=== PATIENT | female | born 1985 | race African-American/Black ===

== ENCOUNTER 2017-02-18 05:34 | Inpatient (IN) | payer MEDICAID, OTHER ==
--- NOTE | 2017-02-17 23:20 | PCM.LDHP ---
L&D History of Present Illness - General Date of Service: 02/17/17 Admit Problem/Dx: Admission Diagnosis/Problem Admission Diagnosis/Problem 02/17/17 23:06 39-1/7 week intrauterine , history of previous section with desire for repeat section Source of Information: Patient History Limitations: Reports: No Limitations - History of Present Illness Introduction:: Char is a 31-year-old 3 para 1011 -[place] female who is admitted for a scheduled repeat section on 02/18/2017 at 39-1/7 weeks gestational age with an RODGER of 02/24/2017. The procedure, risks, benefits, alternatives of care and follow-up were discussed in detail patient. She appears to understand. She wishes to proceed and signed a consent. 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 Her last menstrual period was 05/30/2016. Her RODGER is set at 1214 2017 x 12-5/7 week intrauterine done on 2016. This is supported by 2 other prior ultrasounds done on 10/20/2016 and 2016. Patient had menarche at age 10, cycles every 28 days. Last menstrual period was 05/30/2016 onset, was normal in amount and duration. Positive hCG is on 07/19/2016. Previous obstetric history includes the followin. Spontaneous miscarriage at 6 weeks gestational age in 2010. 2. Male infant born 08/09/2011 at 39 weeks gestational age after 12 hours labor. 8 lbs. 6 oz. born via primary section for failure to progress. Child's name is [facility]. course: Patient was somewhat noncompliant with care. She has history of asthma but was stable throughout the course. Drug screen was negative on . [place] depression screening score was 1 out of 30 on 2016. Father the baby by history has sickle cell trait. She is group B strep negative. Large for dates. Morbidly obese. Rubella nonimmuneneeds an MMR in labor and delivery after delivery. The patient was first seen for care on 08/17/2016. This was at approximately 12 weeks and 5 days. Weight at that time was 281. On last dilation was 322 for a 41 pound weight gain. Vital signs remained stable throughout the course. Fundal height growth has been excessive and now is at 47. Very difficult to assess Past medical history: 1. Spontaneous miscarriage 2010 2. Abnormal Paps or December 2015 Past surgical history: 1. 2011 Family history: Father baby has sickle cell trait. Mother the baby has some mental retardation father's side. Mom however is alive and well. Dad is secondary to heart disease. 4 brothers are alive and well. Maternal grandmother is alive listens history of strokes. Paternal grandfathers health is unknown. Paternal grandmother is from a lightning strike. Paternal grandfather suffers from heart disease. No sickle cell in patient noted. No clotting, bleeding, anesthesia or problems noted in the family. Allergies: shellfish which causes itching and swelling and penicillin which causes vomiting No allergies to penicillins Medications: 1. Tonsils plus calcium one daily 2. Vitamins 1 daily Social history: Patient is single. Significant other's Goran Robins. She has had some college. He is not employed at the present time. He denies any significant amounts of alcohol, drugs or tobacco. They live in [facility]. Review of systems: Skin: Negative Cardiovascular: No chest pain or exercise tolerance Respiratory: No infectious problems or shortness of breath Breasts: Changes Associated GI: Negative : Size increased secondary to . Extremities: 1+ pitting edema Neurological: Negative Physical exam: Last evaluation in clinic on 02/17/2017 her heart rate is 1: 30. Blood pressure is 132/90. Weight was 322 [id number]. Patient's pre body mass index is 48.8 Skin is warm and dry without lesions. HEENT, neck and back within normal limits Lungs are clear with good breath sounds in all lung alexander. Cardiovascular exam shows regular and rhythm without murmurs. Breasts exam is deferred at this time having undergone first visit and found to be normal. Abdomen is protuberant with with a fundal height of 47 cm. I believe there is a vertex presentation. Gentle exam assertion be closed thick and the last dilation 30/09/2016. Extremities show 1+ pitting edema in bilateral lower extremities. Logically patient appears doing well. Assessment: 39-1/7 week intrauterine with history of previous section desire for repeat and prepped 2. Risk factors for the surgery include massive obesity, history of previous surgery 3. Blood is A+. 4. Patient plans to bottle feed Plan: 1. Repeat lower segment transverse section through Pfannenstiel skin incision under spinal block scheduled for 02/18/2017 at 0800 hrs. 2. DVT prophylaxis SCDs 3. Infection prophylaxis Ancef 2 g IV preop. Patient reports no problems with cephalosporins 4. Routine preoperative labs including CBC, urinalysis, type and screen and a comprehensive metabolic profile. - Related Data Allergies/Adverse Reactions: Allergies Allergy/AdvReac Type Severity Reaction Status Date / Time Penicillins Allergy Vomiting Verified 05/11/15 12:53 Home Medications: Home Meds oxyCODONE HCl/Acetaminophen [oxyCODONE-Acetaminophen 5-325] 1 tab PO Q6H PRN # 20 tablet 05/11/15 [Rx] Past Medical History Respiratory History: Reports: Asthma Other Respiratory History: mucous plug in lungs Psychiatric History: Reports: Depression - Infectious Disease History Infectious Disease History: Reports: Chicken Pox, Measles, Mumps Social & Family History - Tobacco Use Smoking Status *Q: Never Smoker Years of Tobacco use: 15 Packs/Tins Daily: 0 - Alcohol Use Days Per Week of Alcohol Use: 2 Number of Drinks Per Day: 5 Total Drinks Per Week: 10 - Recreational Drug Use Recreational Drug Use: No Drug Use in Last 12 Months: Yes Recreational Drug Type: Reports: Marijuana/Hashish Recreational Drug Use Frequency: Daily H&P Review of Systems - Review of Systems: Review Of Systems: See Below L&D Exam - Exam Exam: See Below - Vital Signs Weight: 124.738 kg Problem List Initiated/Reviewed/Updated: Yes
[~2017-02-18 05:34] MED LIST: Citric Acid/Sodium Citrate Solution 30 ML Cup PO ONE; Metoclopramide 10 MG/2 ML SDV IVPUSH ONE; Sodium Chloride 0.9% 10 ML Syringe FLUSH PRN; ceFAZolin 1 GM in Premix Bag 1 BAG IV ONE; ceFAZolin 2 GM in Premix Bag 1 BAG IV ONE
[2017-02-18] MEDS ORDERED: Morphine PF 1 MG/ML Amp ONE (06:51)
[2017-02-18] MEDS ORDERED: Bupivacaine 0.5% 30 ML SDV ONE (06:55)
[2017-02-18] MEDS: Lactated Ringers 1,000 ML IV SCH ×2 (07:12→07:13)
[2017-02-18] MEDS ORDERED: ceFAZolin 1 GM Vial ONE ×2 (07:12→07:50)
[2017-02-18] MEDS ORDERED: Phenylephrine 1% 10 MG/ML SDV ONE (07:12)
--- NOTE | 2017-02-18 07:24 | PCM.PREANE ---
Preanesthetic Assessment - Anesthesia/Transfusion/Family Hx Anesthesia History: Prior Anesthesia Without Reaction Family History of Anesthesia Reaction: No Transfusion History: No Prior Transfusion(s) - Review of Systems General: No Symptoms Pulmonary: No Symptoms Cardiovascular: No Symptoms Gastrointestinal: No Symptoms Neurological: Numbness (fingers) Other: Reports: None - Physical Assessment NPO Status Date: 02/17/17 NPO Status Time: 00:00 Pulse: 90 O2 Sat by Pulse Oximetry: 99 Respiratory Rate: 18 Blood Pressure: 150/83 Temperature: 36.9 C Vital Signs: Last Vital Signs Temp 36.9 C 02/18/17 06:31 Pulse 90 02/18/17 06:31 Resp 18 02/18/17 06:31 BP 150/83 H 02/18/17 06:31 Pulse Ox 99 02/18/17 06:31 Height: 1.64 m Weight: 146.057 kg ASA Class: 2 Mental Status: Alert & Oriented x3 Airway Class: Mallampati = 1 Dentition: Reports: Normal Dentition Thyro-Mental Finger Breadths: 2 Mouth Opening Finger Breadths: 3 ROM/Head Extension: Full Lungs: Clear to Auscultation, Normal Respiratory Effort Cardiovascular: Regular Rate, Regular Rhythm - Lab Values: Laboratory Last Values WBC 7.15 K/mm3 (3.98-10.04) 02/18/17 05:59 RBC 5.02 M/mm3 (3.98-5.22) 02/18/17 05:59 Hgb 12.9 gm/L (11.2-15.7) 02/18/17 05:59 Hct 39.6 % (34.1-44.9) 02/18/17 05:59 MCV 78.9 fl (79.4-94.8) L 02/18/17 05:59 MCH 25.7 pg (25.6-32.2) 02/18/17 05:59 MCHC 32.6 g/dl (32.2-35.5) 02/18/17 05:59 RDW Std Deviation 43.1 fL (36.4-46.3) 02/18/17 05:59 Plt Count 151 K/mm3 (182-369) L 02/18/17 05:59 MPV 12.9 fl (9.4-12.3) H 02/18/17 05:59 Neut % (Auto) 50.0 % (34.0-71.1) 02/18/17 05:59 Lymph % (Auto) 38.5 % (19.3-51.7) 02/18/17 05:59 [place] % (Auto) 8.7 % (4.7-12.5) 02/18/17 05:59 Eos % (Auto) 2.7 (0.7-5.8) 02/18/17 05:59 Baso % (Auto) 0.0 % (0.1-1.2) L 02/18/17 05:59 Neut # (Auto) 3.58 K/mm3 (1.56-6.13) 02/18/17 05:59 Lymph # (Auto) 2.75 K/mm3 (1.18-3.74) 02/18/17 05:59 [place] # (Auto) 0.62 K/mm3 (0.24-0.36) H 02/18/17 05:59 Eos # (Auto) 0.19 K/mm3 (0.04-0.36) 02/18/17 05:59 Baso # (Auto) 0.00 K/mm3 (0.01-0.08) L 02/18/17 05:59 Blood Type A POSITIVE 02/18/17 05:59 - Allergies Allergies/Adverse Reactions: Allergies Allergy/AdvReac Type Severity Reaction Status Date / Time Penicillins Allergy Vomiting Verified 05/11/15 12:53 - Anesthesia Plan Pre-Op Medication Ordered: Antacids - Acknowledgements Anesthesia Type Planned: Spinal Pt an Appropriate Candidate for the Planned Anesthesia: Yes Alternatives and Risks of Anesthesia Discussed w Pt/Guardian: Yes Pt/Guardian Understands and Agrees with Anesthesia Plan: Yes PreAnesthesia Questionnaire Respiratory History: Reports: Asthma Other Respiratory History: mucous plug in lungs 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: Reports: GERD 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: Psychiatric History: Reports: Depression - Infectious Disease History Infectious Disease History: Reports: Chicken Pox, Measles, Mumps - Past Surgical History Respiratory Surgical History: Reports: Other (See Below) Other Respiratory Surgeries/Procedures: Bronchoscopy in 2003 Female Surgical History: Reports: Section - History Comment History Comment: Obese - SUBSTANCE USE Smoking Status *Q: Never Smoker Days Per Week of Alcohol Use: 2 Number of Drinks Per Day: 5 Total Drinks Per Week: 10 Recreational Drug Use History: No Recreational Drug Type: Reports: Marijuana/Hashish - HOME MEDS Home Medications: Home Meds oxyCODONE HCl/Acetaminophen [oxyCODONE-Acetaminophen 5-325] 1 tab PO Q6H PRN # 20 tablet 05/11/15 [Rx] - CURRENT (IN HOUSE) MEDS Current Meds: Current Medications Lactated Ringer's (Ringers, Lactated) 1,000 mls @ 125 mls/hr IV ASDIRECTED JOSE LUIS Last Admin: 02/18/17 07:13 Dose: 125 mls/hr Oxytocin 20 unit/ Lactated (Ringer's) 1,002 mls @ 500 mls/hr IV TITRATE JOSE LUIS Sodium Chloride (Saline Flush) 10 ml FLUSH ASDIRECTED PRN PRN Reason: Keep Vein Open Discontinued Medications Bupivacaine HCl (Marcaine 0.5%) Confirm Administered Dose 30 ml .ROUTE .STK-MED ONE Stop: 02/18/17 06:56 Cefazolin Sodium (Ancef) Confirm Administered Dose 2 gm .ROUTE .STK-MED ONE Stop: 02/18/17 07:13 Citric Acid/Sodium Citrate (Bicitra Solution) 30 ml PO ONETIME ONE Stop: 02/18/17 04:46 Last Admin: 02/18/17 06:54 Dose: 30 ml Cefazolin Sodium/Dextrose 1 gm (/ Premix) 50 mls @ 100 mls/hr IV ONETIME ONE Stop: 02/18/17 05:14 Cefazolin Sodium/Dextrose 2 gm (/ Premix) 50 mls @ 100 mls/hr IV ONETIME ONE Stop: 02/18/17 05:14 Metoclopramide HCl (Reglan) 10 mg IVPUSH ONETIME ONE Stop: 02/18/17 04:46 Last Admin: 02/18/17 06:54 Dose: 10 mg Morphine Sulfate (Duramorph Pf) Confirm Administered Dose 1 mg .ROUTE .STK-MED ONE Stop: 02/18/17 06:52 Phenylephrine HCl (Fady-Synephrine) Confirm Administered Dose 10 mg .ROUTE .STK- MED ONE Stop: 02/18/17 07:13
[2017-02-18] MEDS ORDERED: Oxytocin 10 Units/1 ML SDV ONE (08:37)
[2017-02-18] MEDS ORDERED: Lactated Ringers 1,000 ML ONE ×2 (08:45→08:46)
[2017-02-18] MEDS ORDERED: Ketorolac 30 MG/ML SDV ONE (08:57)
[2017-02-18] MEDS ORDERED: diphenhydrAMINE 50 MG/ML SDV IVPUSH PRN ×2 (09:16→10:58)
--- NOTE | 2017-02-18 09:17 | PCM.POSTAN ---
POST ANESTHESIA ASSESSMENT - MENTAL STATUS Mental Status: Alert, Oriented - VITAL SIGNS Pulse Rate: 92 SaO2: 99 Resp Rate: 15 Blood Pressure: 125/53 Temperature: 36.9 C - RESPIRATORY Respiratory Status: Respiratory Rate WNL, Airway Patent, O2 Saturation Stable, Supplemental Oxygen - CARDIOVASCULAR CV Status: Pulse Rate WNL, Blood Pressure Stable - GASTROINTESTINAL GI Status: No Symptoms - PAIN Pain Score: 0 - POST OP HYDRATION Hydration Status: Adequate & Stable - OBSERVATIONS Free Text/Narrative:: no anesthetic complications noted
--- NOTE | 2017-02-18 09:21 | PCM.OPNOTE ---
- General Post-Op/Procedure Note Date of Surgery/Procedure: 02/18/17 Operative Procedure(s): Repeat lower uterine segment transverse section through Pfannenstiel skin incision Findings: Minimal scarring. Baby in vertex presentation. Clear amniotic fluid. Baby was a male infant and weighed 10 lbs. 0 oz., Apgars of 8 and 9 and was born at 0822 hrs on 02/18/2017. Pre Op Diagnosis: 39-1/7 week intrauterine , history of previous C- section with desire for repeat section Post-Op Diagnosis: Same Anesthesia Technique: Spinal Other Anesthesia Type: Marcaine 0.5%20 mL local Primary Surgeon: Mikal Land Secondary Surgeon: Noe Perez Anesthesia Provider: Destin Swanson Overlock Elastic Attacher: Kiana Galarza Reason Overlock Elastic Attacher Was Necessary: Retraction, patient's safety, quality of care Role of Overlock Elastic Attacher: retraction Fluid Replacement, Intraop: 3,200 Output, Urine Amount: 100 EBL in mLs: 700 Drain/Tube Comments:: Indwelling bladder catheter Complications: None Condition: Good Free Text/Narrative:: Surgery duration 42 minutes Procedure: Patient was transferred to the room and placed in a sitting position. Spinal anesthesia was administered. After confirmation of adequate anesthesia patient was placed in a supine position with a wedge under her right side to facilitate left lateral positioning. The patient was prepped and draped in usual fashion after Vazquez catheter was already placed . The anesthetic was checked and found to be adequate. 20 mL of Marcaine 0.5% was injected locally in the Pfannenstiel incision site. The Pfannenstiel skin incision was then made carried down to skin subcutaneous and fascial layers. The fascia was then undermined superiorly and inferiorly to allow for adequate operating room the recti muscles midline and preperitoneal fat was bluntly dissected. Peritoneal cavity was entered longitudinally. The vesicouterine peritoneum was then incised transversely and bladder flap was developed. Myometrium was incised transversely to the level of the amniotic sac. This incision was extended bilaterally in a blunt fashion. The amniotic sac was then ruptured resulting clear amniotic fluid. A hand is placed in the low uterine segment and the baby's head was brought forth through the incision. The baby was completely delivered using fundal pressure in a routine fashion. The nose and mouth were bulb suctioned. Baby's cord was clamped x2 cut and baby was handed off to attending swimming pool installer Dr Guzman. Placenta was expressed after cord blood was obtained. Uterus was then exteriorized to allow for easier closure. The cervix was assessed and found to be dilated adequately to allow egress of blood. The uterus was closed in 2 layers. The first layer a running locked suture of 0 Monocryl, the second layer a running locked vertical mattress suture of 0 Monocryl. [id number] suture was placed at the left incision to control 1 bleeder. Hemostasis confirmed at this time. Sponge instrument needle counts are correct. The uterus was returned to the abdominal cavity and lateral gutters were cleared of blood. Once again sponge needle counts are correct. The anterior abdominal wall was closed with a #1 PDS suture from angle to angle. The subcutaneous area was found to be free of any bleeders. interrupted sutures of 3-0 Monocryl were used to reapproximate the subcutaneous layer.Skin was closed with a running subcuticular stitch of 3-0 Monocryl in a vertical mattress suture fashion using a Roberto Carlos needle. Prineo mesh /glue was then applied to further approximate the incision. It should be noted that patient received 2 g of Ancef preoperatively for infection prophylaxis and had Pitocin infused after delivery of the placenta to facilitate uterine contraction. She also had sequential compression stockings in place for DVT prophylaxis. Patient was discharged from the operating room in satisfactory condition.
[2017-02-18] MEDS ORDERED: Dextrose 5%-Lactated Ringers 1,000 ML IV SCH (10:58)
[2017-02-18] MEDS ORDERED: Naloxone 0.4 MG/ML SDV IVPUSH PRN (10:58)
[2017-02-18] MEDS ORDERED: ePHEDrine 50 MG/ML SDV IVPUSH PRN (10:58)
[2017-02-18] MEDS ORDERED: Docusate Sodium 100 MG Cap PO PRN (10:58)
[2017-02-18] MEDS ORDERED: Lanolin 100% Cream 7 GM Tube TOP PRN (10:58)
[2017-02-18] MEDS: Ibuprofen 800 MG Tab PO SCH ×2 (15:01→23:26)
--- NOTE | 2017-02-18 15:12 | PCM48HPAN ---
Post Anesthesia Note - EVALUATION WITHIN 48HRS OF ANESTHETIC Vital Signs in Normal Range: Yes Patient Participated in Evaluation: Yes Respiratory Function Stable: Yes Airway Patent: Yes Cardiovascular Function Stable: Yes Hydration Status Stable: Yes Pain Control Satisfactory: Yes Nausea and Vomiting Control Satisfactory: Yes Mental Status Recovered: Yes
[2017-02-18] MEDS ORDERED: Ondansetron 4 MG/2 ML SDV IVPUSH PRN (15:59)
[2017-02-18] MEDS: Simethicone 80 MG Tab.Chew PO SCH ×3 (16:37→23:26)
[2017-02-18] MEDS ORDERED: Sodium Chloride 0.9% 1,000 ML IV ONE (16:42)
[2017-02-19] MEDS: Acetaminophen/oxyCODONE 325-5 MG Tab PO PRN ×4 (04:06→22:05)
[2017-02-19] MEDS: Prenatal Multivitamin with Calcium/Folic Acid/Iron Tab PO SCH (09:26)
[2017-02-19] MEDS: Simethicone 80 MG Tab.Chew PO SCH ×3 (09:27→22:00)
[2017-02-19] MEDS: Ibuprofen 800 MG Tab PO SCH ×4 (09:27→23:55)
[2017-02-19] MEDS ORDERED: Lactated Ringers 1,000 ML IV SCH (10:00)
[2017-02-20] MEDS: Acetaminophen/oxyCODONE 325-5 MG Tab PO PRN ×4 (03:41→17:26)
--- NOTE | 2017-02-20 08:20 | PCM.PNPP ---
- General Info Date of Service: 02/19/17 Subjective Update: 31 year old female POD1 s/p RCS, chronic hypertnesion and probable type 2 or gestational diabetes. Some left sided neck pain and positional headache over night. Patient distressed by this with worry. Functional Status: Reports: Pain Controlled - Review of Systems General: Reports: No Symptoms HEENT: Reports: Headaches Pulmonary: Reports: No Symptoms Cardiovascular: Reports: No Symptoms Gastrointestinal: Reports: No Symptoms Genitourinary: Reports: No Symptoms Musculoskeletal: Reports: Neck Pain Skin: Reports: No Symptoms Neurological: Reports: No Symptoms Psychiatric: Reports: No Symptoms - General Info Date of Service: 02/20/17 - Patient Data Vital Signs - Most Recent: Last Vital Signs Temp 36.7 C 02/20/17 03:45 Pulse 77 02/20/17 03:45 Resp 16 02/20/17 03:45 BP 141/74 H 02/20/17 03:45 Pulse Ox 99 02/20/17 03:45 Weight - Most Recent: 146.057 kg I&O - Last 24 Hours: Intake & Output 02/19/17 02/20/17 02/20/17 22:59 06:59 14:59 Intake Total 640 Balance 640 Med Orders - Current: Current Medications Diphenhydramine HCl (Benadryl) 25 mg IVPUSH Q6H PRN PRN Reason: Itching or Nausea Docusate Sodium (Colace) 100 mg PO Q12H PRN PRN Reason: Constipation Emollient Ointment (Lansinoh Hpa) 0 gm TOP ASDIRECTED PRN PRN Reason: Sore Nipples Ephedrine Sulfate (Ephedrine Sulfate) 5 mg IVPUSH SEECOMMENT PRN PRN Reason: Other Lactated Ringer's (Ringers, Lactated) 1,000 mls @ 500 mls/hr IV ASDIRECTED JOSE LUIS Last Admin: 02/19/17 10:19 Dose: 500 mls/hr Ibuprofen (Motrin) 800 mg PO Q8H [facility] Last Admin: 02/19/17 23:55 Dose: 800 mg Naloxone HCl (Narcan) 0.1 mg IVPUSH SEECOMMENT PRN PRN Reason: Respiratory Depression Ondansetron HCl (Zofran) 4 mg IVPUSH Q4HR PRN PRN Reason: Nausea Last Admin: 02/18/17 16:10 Dose: 4 mg Oxycodone/Acetaminophen (Percocet 325-5 Mg) 2 tab PO Q4H PRN PRN Reason: Pain (moderate 4-6) Last Admin: 02/20/17 03:41 Dose: 2 tab Prenat Multivit/Home Performance Laborer/Iron/Folic Ac ( Plus Iron) 1 each PO DAILY [facility] Last Admin: 02/19/17 09:26 Dose: 1 each Simethicone (Simethicone) 80 mg PO PCBED [facility] Last Admin: 02/19/17 22:00 Dose: 80 mg Discontinued Medications Bupivacaine HCl (Marcaine 0.5%) Confirm Administered Dose 30 ml .ROUTE .STK-MED ONE Stop: 02/18/17 06:56 Last Admin: 02/18/17 08:18 Dose: 20 ml Cefazolin Sodium (Ancef) Confirm Administered Dose 2 gm .ROUTE .STK-MED ONE Stop: 02/18/17 07:13 Cefazolin Sodium (Ancef) Confirm Administered Dose 1 gm .ROUTE .STK-MED ONE Stop: 02/18/17 07:51 Citric Acid/Sodium Citrate (Bicitra Solution) 30 ml PO ONETIME ONE Stop: 02/18/17 04:46 Last Admin: 02/18/17 06:54 Dose: 30 ml Diphenhydramine HCl (Benadryl) 25 mg IVPUSH Q6H PRN PRN Reason: Itching Cefazolin Sodium/Dextrose 1 gm (/ Premix) 50 mls @ 100 mls/hr IV ONETIME ONE Stop: 02/18/17 05:14 Last Admin: 02/18/17 22:37 Dose: Not Given Cefazolin Sodium/Dextrose 2 gm (/ Premix) 50 mls @ 100 mls/hr IV ONETIME ONE Stop: 02/18/17 05:14 Last Admin: 02/18/17 22:37 Dose: Not Given Lactated Ringer's (Ringers, Lactated) 1,000 mls @ 125 mls/hr IV ASDIRECTED [facility] Last Admin: 02/18/17 07:13 Dose: 125 mls/hr Oxytocin 20 unit/ Lactated (Ringer's) 1,002 mls @ 500 mls/hr IV TITRATE JOSE LUIS Lactated Ringer's (Ringers, Lactated) Confirm Administered Dose 1,000 mls @ as directed .ROUTE .STK-MED ONE Stop: 02/18/17 08:46 Lactated Ringer's (Ringers, Lactated) Confirm Administered Dose 1,000 mls @ as directed .ROUTE .STK-MED ONE Stop: 02/18/17 08:47 Dextrose/Lactated Ringer's (Dextrose 5%-Lactated Ringers) 1,000 mls @ 125 mls/ hr IV ASDIRECTED JOSE LUIS Stop: 02/18/17 18:57 Last Infusion: 02/18/17 18:54 Dose: 150 mls/hr Sodium Chloride (Normal Saline) 1,000 mls @ 999 mls/hr IV ONETIME ONE Stop: 02/18/17 17:42 Last Admin: 02/18/17 18:53 Dose: 999 mls/hr Ketorolac Tromethamine (Toradol) Confirm Administered Dose 30 mg .ROUTE .STK- MED ONE Stop: 02/18/17 08:58 Metoclopramide HCl (Reglan) 10 mg IVPUSH ONETIME ONE Stop: 02/18/17 04:46 Last Admin: 02/18/17 06:54 Dose: 10 mg Morphine Sulfate (Duramorph Pf) Confirm Administered Dose 1 mg .ROUTE .STK-MED ONE Stop: 02/18/17 06:52 Oxytocin (Pitocin) Confirm Administered Dose 10 unit .ROUTE .STK-MED ONE Stop: 02/18/17 08:38 Phenylephrine HCl (Fady-Synephrine) Confirm Administered Dose 10 mg .ROUTE .STK- MED ONE Stop: 02/18/17 07:13 Sodium Chloride (Saline Flush) 10 ml FLUSH ASDIRECTED PRN PRN Reason: Keep Vein Open - Interaction Infant Disposition, : at Bedside Support Person: Significant Other - Recovery Exam Fundal Tone: Firm Fundal Level: At Umbilicus Fundal Placement: Midline Lochia Amount: Scant Lochia Color: Brownish Perineum Description: Intact, Minimal Bruising/Swelling Episiotomy/Laceration: Approximated Bladder Status: Nonpalpable Urinary Elimination: Voided Other Urinary Elimination, : cath d/c at this time - Exam General: Alert, Oriented HEENT: Pupils Equal, Pupils Reactive, EOMI Neck: Supple Lungs: Clear to Auscultation, Normal Respiratory Effort Cardiovascular: Regular Rate, Regular Rhythm GI/Abdominal Exam: Normal Bowel Sounds, Soft, Non-Tender, No Organomegaly, No Distention, No Abnormal Bruit, No Mass, Pelvis Stable Extremities: Normal Inspection, Normal Range of Motion, Non-Tender, No Pedal Edema, Normal Capillary Refill Skin: Warm, Dry, Intact Wound/Incisions: Healing Well, No Drainage Neurological: No New Focal Deficit Psy/Mental Status: Alert, Normal Affect, Normal Mood - Problem List Review Problem List Initiated/Reviewed/Updated: Yes - My Orders Last 24 Hours: My Active Orders 02/19/17 09:55 RT Incentive Spirometry [RC] ASDIRECTED - Assessment Assessment:: POD1 -Doing well other than positional headache. 0/10 when lies flat but "10/10" when upright or moves around. Resolves almost completely with percocet. - Blood pressures better 140/80s - no higher. - Neck pain seems musculoskeletal. Plan - increase IVF, increase po intake and have caffiene (a coke at patient request) - Discuss with anesthesia - Supportive care - Probable discharge POD3
--- NOTE | 2017-02-20 08:23 | PCM.PNPP ---
- General Info Date of Service: 02/20/17 Subjective Update: Very worried over night by neck pain and headache. Per nursing at time was scared by 12/21 pain but was walking comfortable at the desk and in her room eating pizza while walking around. Family from [place] has called demanding CT scan Refused flexeril I had ordered over night Functional Status: Reports: Pain Controlled - Review of Systems General: Reports: No Symptoms HEENT: Reports: Headaches Pulmonary: Reports: No Symptoms Cardiovascular: Reports: No Symptoms Gastrointestinal: Reports: No Symptoms Genitourinary: Reports: No Symptoms Musculoskeletal: Reports: No Symptoms Skin: Reports: No Symptoms Neurological: Reports: No Symptoms Psychiatric: Reports: No Symptoms - General Info Date of Service: 02/20/17 - Patient Data Vital Signs - Most Recent: Last Vital Signs Temp 36.7 C 02/20/17 03:45 Pulse 77 02/20/17 03:45 Resp 16 02/20/17 03:45 BP 141/74 H 02/20/17 03:45 Pulse Ox 99 02/20/17 03:45 Weight - Most Recent: 146.057 kg I&O - Last 24 Hours: Intake & Output 02/19/17 02/20/17 02/20/17 22:59 06:59 14:59 Intake Total 640 Balance 640 Med Orders - Current: Current Medications Diphenhydramine HCl (Benadryl) 25 mg IVPUSH Q6H PRN PRN Reason: Itching or Nausea Docusate Sodium (Colace) 100 mg PO Q12H PRN PRN Reason: Constipation Emollient Ointment (Lansinoh Hpa) 0 gm TOP ASDIRECTED PRN PRN Reason: Sore Nipples Ephedrine Sulfate (Ephedrine Sulfate) 5 mg IVPUSH SEECOMMENT PRN PRN Reason: Other Lactated Ringer's (Ringers, Lactated) 1,000 mls @ 500 mls/hr IV ASDIRECTED [facility] Last Admin: 02/19/17 10:19 Dose: 500 mls/hr Ibuprofen (Motrin) 800 mg PO Q8H [facility] Last Admin: 02/19/17 23:55 Dose: 800 mg Naloxone HCl (Narcan) 0.1 mg IVPUSH SEECOMMENT PRN PRN Reason: Respiratory Depression Ondansetron HCl (Zofran) 4 mg IVPUSH Q4HR PRN PRN Reason: Nausea Last Admin: 02/18/17 16:10 Dose: 4 mg Oxycodone/Acetaminophen (Percocet 325-5 Mg) 2 tab PO Q4H PRN PRN Reason: Pain (moderate 4-6) Last Admin: 02/20/17 03:41 Dose: 2 tab Prenat Multivit/[employer]ed [employer]els Developer/Iron/Folic Ac ( Plus Iron) 1 each PO DAILY [facility] Last Admin: 02/19/17 09:26 Dose: 1 each Simethicone (Simethicone) 80 mg PO PCBED [facility] Last Admin: 02/19/17 22:00 Dose: 80 mg Discontinued Medications Bupivacaine HCl (Marcaine 0.5%) Confirm Administered Dose 30 ml .ROUTE .STK-MED ONE Stop: 02/18/17 06:56 Last Admin: 02/18/17 08:18 Dose: 20 ml Cefazolin Sodium (Ancef) Confirm Administered Dose 2 gm .ROUTE .STK-MED ONE Stop: 02/18/17 07:13 Cefazolin Sodium (Ancef) Confirm Administered Dose 1 gm .ROUTE .STK-MED ONE Stop: 02/18/17 07:51 Citric Acid/Sodium Citrate (Bicitra Solution) 30 ml PO ONETIME ONE Stop: 02/18/17 04:46 Last Admin: 02/18/17 06:54 Dose: 30 ml Diphenhydramine HCl (Benadryl) 25 mg IVPUSH Q6H PRN PRN Reason: Itching Cefazolin Sodium/Dextrose 1 gm (/ Premix) 50 mls @ 100 mls/hr IV ONETIME ONE Stop: 02/18/17 05:14 Last Admin: 02/18/17 22:37 Dose: Not Given Cefazolin Sodium/Dextrose 2 gm (/ Premix) 50 mls @ 100 mls/hr IV ONETIME ONE Stop: 02/18/17 05:14 Last Admin: 02/18/17 22:37 Dose: Not Given Lactated Ringer's (Ringers, Lactated) 1,000 mls @ 125 mls/hr IV ASDIRECTED [facility] Last Admin: 02/18/17 07:13 Dose: 125 mls/hr Oxytocin 20 unit/ Lactated (Ringer's) 1,002 mls @ 500 mls/hr IV TITRATE JOSE LUIS Lactated Ringer's (Ringers, Lactated) Confirm Administered Dose 1,000 mls @ as directed .ROUTE .STK-MED ONE Stop: 02/18/17 08:46 Lactated Ringer's (Ringers, Lactated) Confirm Administered Dose 1,000 mls @ as directed .ROUTE .STK-MED ONE Stop: 02/18/17 08:47 Dextrose/Lactated Ringer's (Dextrose 5%-Lactated Ringers) 1,000 mls @ 125 mls/ hr IV ASDIRECTED JOSE LUIS Stop: 02/18/17 18:57 Last Infusion: 02/18/17 18:54 Dose: 150 mls/hr Sodium Chloride (Normal Saline) 1,000 mls @ 999 mls/hr IV ONETIME ONE Stop: 02/18/17 17:42 Last Admin: 02/18/17 18:53 Dose: 999 mls/hr Ketorolac Tromethamine (Toradol) Confirm Administered Dose 30 mg .ROUTE .STK- MED ONE Stop: 02/18/17 08:58 Metoclopramide HCl (Reglan) 10 mg IVPUSH ONETIME ONE Stop: 02/18/17 04:46 Last Admin: 02/18/17 06:54 Dose: 10 mg Morphine Sulfate (Duramorph Pf) Confirm Administered Dose 1 mg .ROUTE .STK-MED ONE Stop: 02/18/17 06:52 Oxytocin (Pitocin) Confirm Administered Dose 10 unit .ROUTE .STK-MED ONE Stop: 02/18/17 08:38 Phenylephrine HCl (Fady-Synephrine) Confirm Administered Dose 10 mg .ROUTE .STK- MED ONE Stop: 02/18/17 07:13 Sodium Chloride (Saline Flush) 10 ml FLUSH ASDIRECTED PRN PRN Reason: Keep Vein Open - Interaction Disposition, : Johnson at Bedside Support Person: Significant Other - Recovery Exam Fundal Tone: Firm Fundal Level: At Umbilicus Fundal Placement: Midline Lochia Amount: Scant Lochia Color: Brownish Perineum Description: Intact, Minimal Bruising/Swelling Episiotomy/Laceration: Approximated Bladder Status: Nonpalpable Urinary Elimination: Voided Other Urinary Elimination, : cath d/c at this time - Exam General: Alert, Oriented HEENT: Pupils Equal, Pupils Reactive, EOMI Neck: Supple Lungs: Clear to Auscultation, Normal Respiratory Effort Cardiovascular: Regular Rate, Regular Rhythm GI/Abdominal Exam: Normal Bowel Sounds, Soft, Non-Tender, No Organomegaly, No Distention, No Abnormal Bruit, No Mass, Pelvis Stable Extremities: Normal Inspection, Normal Range of Motion, Non-Tender, No Pedal Edema, Normal Capillary Refill Skin: Warm, Dry, Intact Wound/Incisions: Healing Well Neurological: No New Focal Deficit Psy/Mental Status: Alert, Normal Affect, Normal Mood - Problem List Review Problem List Initiated/Reviewed/Updated: Yes - My Orders Last 24 Hours: My Active Orders 02/19/17 09:55 RT Incentive Spirometry [RC] ASDIRECTED - Assessment Assessment:: POD2 -Doing well other than positional headache. 0/10 when lies flat but "10/10" when upright or moves around. Resolves almost completely with percocet. Seems improved from yesterday, she moves comfortably around room - Blood pressures better 140/80s - no higher. - Neck pain seems musculoskeletal. Plan - increase IVF, increase po intake and have caffiene (a coke at patient request) - Discuss with anesthesia - Supportive care - Probable discharge POD3 - guest services representative tomorrow as well, patient very afraid to go home with no help at home. - Encourage flexeril for neck pain
[2017-02-20] MEDS: Ibuprofen 800 MG Tab PO SCH ×2 (08:35→15:52)
[2017-02-20] MEDS: Simethicone 80 MG Tab.Chew PO SCH ×4 (08:35→18:44)
[2017-02-20] MEDS: Prenatal Multivitamin with Calcium/Folic Acid/Iron Tab PO SCH (08:35)
[2017-02-20] MEDS ORDERED: Measles, Mumps & Rubella Vaccine 0.5 ML SDV SUBCUT ONE (11:26)
[2017-02-20] MEDS ORDERED: FLU Vacc QS 2017-18 (6mos UP)/PF 60 MCG/0.5 ML Syringe IM ONE (11:27)
[2017-02-20] MEDS ORDERED: Diphtheria,Pertussis(Acell),Tetanus Vaccine 0.5 ML SDV IM ONE (16:01)
[2017-02-20 18:53] VITALS: BP 143/73
== END 2017-02-20 20:15 | disposition home or self-care (01) | DRG 765 ==
LOC: JD.OB 05:34 → UNDOADMIN 05:34 → UNDODISIN 02-20 20:15
PROVIDERS: ADMIT Obstetrics & Gynecology; ATTEND Obstetrics & Gynecology
PROC: 10D00Z1 Extraction of Products of Conception, Low, Open Approach (ICD-10-PCS; principal; 2017-02-18)
DX: O34.211 Maternal care for low transverse scar from previous cesarean delivery (principal); Z68.43 Body mass index [BMI] 50.0-59.9, adult; O10.92 Unspecified pre-existing hypertension complicating childbirth; O24.429 Gestational diabetes mellitus in childbirth, unspecified control; N85.8 Other specified noninflammatory disorders of uterus; Z3A.39 39 weeks gestation of pregnancy; Z37.0 Single live birth; Z91.013 Allergy to seafood; Z88.0 Allergy status to penicillin; O99.89 Other specified diseases and conditions complicating pregnancy, childbirth and the puerperium; R51 Headache; M54.2 Cervicalgia; O99.214 Obesity complicating childbirth; E66.01 Morbid (severe) obesity due to excess calories
CPT/HCPCS: 01961; 36415; 85025; 86850; 86900; 86901; 90471; 90686; 90707; 90715; A9270-GY; G0008; J0690; J1885; J2274; J2370; J2405; J2590; J2765; J7040; J7042; J7120

== ENCOUNTER 2017-02-23 18:12 | Emergency (ER) | payer MEDICAID, OTHER ==
[2017-02-23 18:34] VITALS: BP 158/95
[2017-02-23] MEDS ORDERED: HYDROmorphone 0.5 MG/0.5 ML Syringe IVPUSH ONE ×2 (19:13→20:39)
[2017-02-23] MEDS ORDERED: Sodium Chloride 0.9% 1,000 ML IV ONE (19:15)
--- NOTE | 2017-02-23 19:23 | EDM.PDOC ---
ED HPI GENERAL MEDICAL PROBLEM - General Chief Complaint: Headache Stated Complaint: HEAD AND NECK PAIN Time Seen by Provider: 02/23/17 19:15 Source of Information: Reports: Patient History Limitations: Reports: No Limitations - History of Present Illness INITIAL COMMENTS - FREE TEXT/NARRATIVE: Patient is a 31-year-old female presents ED complaining of generalized headache with right-sided neck discomfort patient states she had a this past Tuesday. Patient underwent with no complications. She did state with placement of epidural they had to do at approximately 6 times before getting it. States the following day so developed this generalized headache with neck discomfort has started treating it with Percocet. She been taking the Percocet as prescribed. Headache returns with no worsening noted. She's also taken ibuprofen and also Tylenol with minimal relief. There's been no recent fall and a contributing to the discomfort. She denies any vision changes, history of migraines, nausea/vomiting, numbness or tingling to extremities, fever, dysuria , or any additional complaints. She does have pain localized to incision site unchanged from discharge. She has no history of eclampsia. 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: Psychiatric History: Reports: Depression - Infectious Disease History Infectious Disease History: Reports: Chicken Pox, Measles, Mumps - Past Surgical History Respiratory Surgical History: Reports: Other (See Below) Other Respiratory Surgeries/Procedures: Bronchoscopy in 2003 Female Surgical History: Reports: Section - History Comment History Comment: Obese Social & Family History - Tobacco Use Smoking Status *Q: Never Smoker Years of Tobacco use: 4 Packs/Tins Daily: 0 - Caffeine Use Caffeine Use: Reports: Coffee - Alcohol Use Days Per Week of Alcohol Use: 2 Number of Drinks Per Day: 5 Total Drinks Per Week: 10 - Recreational Drug Use Recreational Drug Use: No Drug Use in Last 12 Months: Yes Recreational Drug Type: Reports: Marijuana/Hashish Other Recreational Drug Type: pt currently denies drug use however did admit to marijuana use during Recreational Drug Use Frequency: Daily ED ROS GENERAL - Review of Systems Review Of Systems: See Below - Physical Exam Exam: See Below Exam Limited By: No Limitations General Appearance: Alert, WD/WN, Mild Distress Eye Exam: Bilateral Eye: EOMI, PERRL Ears: Hearing Grossly Normal Nose: Normal Inspection Throat/Mouth: Normal Voice, No Airway Compromise Neck: Normal Inspection, Supple, Non-Tender, Full Range of Motion, Other. No: Lymphadenopathy (L), Lymphadenopathy (R) Respiratory/Chest: No Respiratory Distress, Lungs Clear, Normal Breath Sounds, No Accessory Muscle Use Cardiovascular: Normal Peripheral Pulses, Regular Rate, Rhythm, No Murmur GI/Abdominal: Normal Bowel Sounds, Soft, Other (obese. Surgical incisions appears to be ) Course - Vital Signs Last Recorded V/S: Last Vital Signs Temp 97.1 F 02/23/17 18:29 Pulse 88 02/23/17 18:29 Resp 16 02/23/17 18:29 BP 158/95 H 02/23/17 18:29 Pulse Ox 99 02/23/17 18:29 - Orders/Labs/Meds Labs: Laboratory Tests 02/23/17 02/23/17 02/23/17 Range/Units 19:30 19:30 19:30 WBC 6.48 (3.98-10.04) K/mm3 RBC 4.26 (3.98-5.22) M/mm3 Hgb 11.2 (11.2-15.7) gm/L Hct 34.1 (34.1-44.9) % MCV 80.0 (79.4-94.8) fl MCH 26.3 (25.6-32.2) pg MCHC 32.8 (32.2-35.5) g/dl RDW Std Deviation 42.9 (36.4-46.3) fL Plt Count 168 L (182-369) K/mm3 MPV 12.0 (9.4-12.3) fl Neut % (Auto) 68.3 (34.0-71.1) % Lymph % (Auto) 23.0 (19.3-51.7) % Hodgeman % (Auto) 6.3 (4.7-12.5) % Eos % (Auto) 2.2 (0.7-5.8) Baso % (Auto) 0.0 L (0.1-1.2) % Neut # (Auto) 4.43 (1.56-6.13) K/mm3 Lymph # (Auto) 1.49 (1.18-3.74) K/mm3 Hodgeman # (Auto) 0.41 H (0.24-0.36) K/mm3 Eos # (Auto) 0.14 (0.04-0.36) K/mm3 Baso # (Auto) 0.00 L (0.01-0.08) K/mm3 Sodium 139 (136-145) mEq/L Potassium 4.0 (3.5-5.1) mEq/L Chloride 104 (98-107) mEq/L Carbon Dioxide 27 (21-32) mEq/L Anion Gap 12.0 (5-15) BUN 12 (7-18) mg/dL Creatinine 0.9 (0.55-1.02) mg/dL Est Cr Clr Drug Dosing 81.50 mL/min Estimated GFR (MDRD) > 60 (>60) mL/min BUN/Creatinine Ratio 13.3 L (14-18) Glucose 77 (74-106) mg/dL Calcium 9.1 (8.5-10.1) mg/dL Total Bilirubin 0.4 (0.2-1.0) mg/dL AST 81 H (15-37) U/L ALT 61 H (14-59) U/L Alkaline Phosphatase 92 (46-116) U/L C-Reactive Protein 11.0 H* (<1.0) mg/dL Total Protein 7.2 (6.4-8.2) g/dl Albumin 2.6 L (3.4-5.0) g/dl Globulin 4.6 gm/dL Albumin/Globulin Ratio 0.6 L (1-2) Urine Color Yellow (Yellow) Urine Appearance Clear (Clear) Urine pH 7.5 (5.0-8.0) Ur Specific [place] 1.020 (1.005-1.030) Urine Protein Negative (Negative) Urine Glucose (UA) Negative (Negative) Urine Ketones Negative (Negative) Urine Occult Blood 2+ H (Negative) Urine Nitrite Negative (Negative) Urine Bilirubin Negative (Negative) Urine Urobilinogen 0.2 (0.2-1.0) Ur Leukocyte Esterase Negative (Negative) Urine RBC 0-5 (0-5) /hpf Urine WBC 0-5 (0-5) /hpf Ur Epithelial Cells 0-5 (0-5) /hpf Urine Bacteria Rare (FEW) /hpf Urine Mucus Not seen (FEW) /hpf Meds: Medications Discontinued Medications Generic Name Dose Route Start Last Admin Trade Name Gianni PRN Reason Stop Dose Admin Hydromorphone HCl 0.5 mg 02/23/17 19:13 02/23/17 19:40 Dilaudid IVPUSH 02/23/17 19:14 0.5 mg ONETIME ONE Administration Hydromorphone HCl 0.5 mg 02/23/17 20:39 02/23/17 20:49 Dilaudid IVPUSH 02/23/17 20:40 0.5 mg ONETIME ONE Administration Sodium Chloride 1,000 mls @ 999 mls/hr 02/23/17 19:15 02/23/17 19:39 Normal Saline IV 02/23/17 20:15 999 mls/hr ONETIME ONE Administration Oxycodone/Acetaminophen 1 tab 02/23/17 20:39 02/23/17 20:49 Percocet 325-5 Mg PO 02/23/17 20:40 1 tab ONETIME ONE Administration - Re-Assessments/Exams Free Text/Narrative Re-Assessment/Exam: Will obtain peripheral IV with NS 999 ml/hr and dilaudid 0.5mg IVP. Labs reviewed: WBC 6.48, HGB 11.2, Platelet count 168, Na 139, K 4.0, CR 0.9, AST 81, ALT 61, and CRP 11.0. UA pending. 2013 Monalisa Ortiz CRNA has spoken with the patient. Patient told her she has pain to the neck relieved with laying down and taking percocet. Once standing she feels her neck lock up with extension of pain to the sides of her head to the front. It is not described as worse headache of her life. With speaking to Monalisa this is not the typical presentation for post lumbar headache. Patient is not wanting to have the blood patch performed. Will complete the IV fluids and await for UA results. UA positive for blood with no additional concerning findings. 02/23/17 20:30 Patient has been up walking to the bathroom with no issues. Patient requests something for pain prior to pulling the IV. Ordered dilaudid 0.5 IVP and percocet 5-325mg PO x1. We have educated the patient that she should not be breast-feeding while taking narcotics. Patient has not been. 2046 Reassessment, patient states after ambulating to the bathroom she developed a worsening headache. She has elected to go through with the blood patch. Anesthesia has been contacted. Blood patch successfully completed. See procedural notes for details. Patient will lay flat and still for one hour (1041). Then lay flat move side to side for another hour. If no issues may go home. It is my end of shift. Discussed with Dr. Uribe. Discharge instructions have been completed. Departure - Departure Time of Disposition: 00:19 Disposition: Home, Self-Care 01 Condition: Good Clinical Impression: Post lumbar puncture headache - Discharge Information Instructions: Spinal Headache Referrals: Mikal Land MD [Primary Care Provider] - Forms: ED Department Discharge Additional Instructions: As discussed may take 24 hrs for the blood patch to take affect relieving the headache. You may develop back discomfort to where blood patch was performed. This is normal. Take tylenol 650 every 6 hrs for headache. If no relief take percocet 5-325mg PO every 6 hrs instead. Do not take tylenol and percocet tabs together. Do not exceed 4000mg of tylenol in a 24 hr period. Suggest going home to rest this evening refraining from any excessive activities. No breast feeding while taking narcotics. Followup with [employer] specialists as scheduled. No driving while taking the narcotics. Return to the E.D. for any new or worsening symptoms.
--- NOTE | 2017-02-23 20:38 | PCM.SN ---
- Free Text/Narrative Note: Called to the ER to visit with Char regarding her symptoms status post section on February 18. She is complaining of a severe stiff neck that progresses to a headache while standing. Her shoulders into her neck feel frozen and tight. She does not complain of an intense headache. She states the pain is in her neck and once her neck starts to hurt her shoulders get tight. Reviewed the options for treatment for an epidural headache. The patient does not wish to proceed with an epidural blood patch as she feels this pain is in her neck and not a headache. Visited with the ER Provider (Dino Shen). He does not feel she is describing a postdural puncture headache. He will obtain laboratory studies and be in contact if any further assistance is needed. Alisson Ortiz CRNA
[2017-02-23] MEDS ORDERED: Acetaminophen/oxyCODONE 325-5 MG Tab PO ONE (20:39)
--- NOTE | 2017-02-23 22:05 | PCM.SN ---
- Free Text/Narrative Note: Called by ED Provider. Patient wishes to proceed with an epidural blood patch at this time. The risks and complications were discussed with the patient including permanent nerve damage, infection, bleeding, another dural puncture, and a intrathecal hematoma. Patient and wish to proceed with the blood patch. A lab rn transition was called to draw the blood using sterile procedure at the same time I was locating the patients epidural space. Sterile gloves, epidural kit and drapes were utilized. Masks were worn by everyone in the room. Time out performed. Skin was localized with 3ml of 1% lidocaine just below the previous puncture site. ALESSANDRA was noted. 20 ml of blood from the patients left anetcubital was injected with ease. The patient felt intense pressure with the injections, but it was not intolerable. She was able to tolerated the full 20 ml of blood for the patch. The patient was instructed to lie flat for the next hour and to remain as still as possible for the next couple hours to make sure the blood patch could form a clot around the leaking site. The patient tolerated the procedure well. She denied pain at the end of the procedure. She was encouraged to drink lots of fluids and informed the blood patch may take up to 24 hours to provide relief. Alisson Ortiz CRNA
== END 2017-02-24 00:19 | disposition home or self-care (01) ==
LOC: JD.ED 18:12
DX: O89.4 Spinal and epidural anesthesia-induced headache during the puerperium (principal); Z88.0 Allergy status to penicillin
CPT/HCPCS: 36415; 62273; 80053; 81001; 85025; 86140; 99284; A9270; J1170; J7040

== ENCOUNTER 2017-05-13 15:20 | Emergency (ER) | payer MEDICAID ==
[2017-05-13 16:04] VITALS: BP 117/89
[2017-05-13] MEDS ORDERED: Ketorolac 30 MG/ML SDV IVPUSH ONE (17:20)
[2017-05-13] MEDS ORDERED: Diazepam 2 MG Tab PO ONE (17:20)
[2017-05-13] MEDS ORDERED: Morphine 10 MG/ML Syringe IVPUSH ONE (17:20)
[2017-05-13] MEDS ORDERED: Morphine 2 MG/ML Syringe IVPUSH ONE (19:17)
--- NOTE | 2017-05-13 19:22 | EDM.PDOC ---
ED HPI GENERAL MEDICAL PROBLEM - General Chief Complaint: Back Pain or Injury Stated Complaint: BACK PAIN Time Seen by Provider: 05/13/17 17:00 Source of Information: Reports: Patient History Limitations: Reports: No Limitations - History of Present Illness INITIAL COMMENTS - FREE TEXT/NARRATIVE: 31-year-old female presents for evaluation and treatment of low back pain. Patient reports that she's had back pain for several months. Over the past day her back pain has significantly worsened. When asked what she rates her pain she states that it is greater than a 10 out of 10. She reports the pain is located across her bilateral low back. No radiation into the legs or groin. No numbness or tingling into the legs. No fevers, urinary incontinence or stool incontinence. She has not had any urinary symptoms such as dysuria or hematuria. She reports that she took a tramadol earlier today which did not provide any relief. 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 Lower Back Pain Score (Numeric/FACES): 10 - Related Data Allergies Allergy/AdvReac Type Severity Reaction Status Date / Time Penicillins AdvReac Vomiting Verified 05/17/17 12:33 Home Meds: Home Meds Acetaminophen/HYDROcodone [[place] 325-5 MG] 1 tab PO Q6H PRN #12 tablet 05/13/17 [Rx] Orphenadrine [Norflex] 100 mg PO BID PRN #20 tab.er 05/13/17 [Rx] Past Medical History Respiratory History: Reports: Asthma Other Respiratory History: mucous plug in lungs 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: Reports: GERD 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: Psychiatric History: Reports: Depression - Infectious Disease History Infectious Disease History: Reports: Chicken Pox, Measles, Mumps - Past Surgical History Respiratory Surgical History: Reports: Other (See Below) Other Respiratory Surgeries/Procedures: Bronchoscopy in 2003 Female Surgical History: Reports: Section - History Comment History Comment: Obese Social & Family History - Family History Family Medical History: Noncontributory - Tobacco Use Smoking Status *Q: Never Smoker Years of Tobacco use: 4 Packs/Tins Daily: 0 - Caffeine Use Caffeine Use: Reports: None - Alcohol Use Days Per Week of Alcohol Use: 2 Number of Drinks Per Day: 5 Total Drinks Per Week: 10 - Recreational Drug Use Recreational Drug Use: No Drug Use in Last 12 Months: Yes Recreational Drug Type: Reports: Marijuana/Hashish Other Recreational Drug Type: pt currently denies drug use however did admit to marijuana use during Recreational Drug Use Frequency: Daily ED ROS GENERAL - Review of Systems Review Of Systems: See Below Constitutional: Denies: Fever GI/Abdominal: Denies: Stool Incontinence : Denies: Dysuria, Flank Pain, Hematuria, Incontinence Musculoskeletal: Reports: Back Pain (lumbar spine). Denies: Leg Pain Neurological: Reports: Difficulty Walking. Denies: Numbness, Tingling ED EXAM,LOWER BACK PAIN/INJURY - Physical Exam Exam: See Below Exam Limited By: No Limitations General Appearance: Alert, WD/WN, Moderate Distress, Obese Eye Exam: Bilateral Eye: Normal Inspection Respiratory/Chest: No Respiratory Distress, Lungs Clear, Normal Breath Sounds Cardiovascular: Normal Peripheral Pulses, Regular Rate, Rhythm, No Murmur GI/Abdominal: Soft, Non-Tender Back Exam: Normal Inspection, Paraspinal Tenderness (L2-sacrum, bilateral), Vertebral Tenderness (L2- sacrum, bilateral) Extremities: Normal Inspection Neurological: Alert, Normal Mood/Affect, Normal Dorsiflexion, Normal Plantar Flexion, Normal Gait. No: Straight Leg Raise (L), Straight Leg Raise (R), Saddle Anesthesia Psychiatric: Normal Affect, Normal Mood Skin Exam: Warm, Dry, Normal Color Course - Vital Signs Last Recorded V/S: Last Vital Signs Temp 36.3 C 05/13/17 15:58 Pulse 98 05/13/17 15:58 Resp 18 05/13/17 15:58 BP 117/89 05/13/17 15:58 Pulse Ox 100 05/13/17 15:58 - Orders/Labs/Meds Labs: Laboratory Tests 05/13/17 05/13/17 Range/Units 18:22 18:22 Urine Color Yellow (Yellow) Urine Appearance Slt cloudy H (Clear) Urine pH 5.5 (5.0-8.0) Ur Specific [place] > or = 1.030 (1.005-1.030) Urine Protein Trace H (Negative) Urine Glucose (UA) Negative (Negative) Urine Ketones Negative (Negative) Urine Occult Blood Negative (Negative) Urine Nitrite Negative (Negative) Urine Bilirubin Negative (Negative) Urine Urobilinogen 0.2 (0.2-1.0) Ur Leukocyte Esterase Negative (Negative) Urine RBC 0-5 (0-5) /hpf Urine WBC 5-10 H (0-5) /hpf Ur Epithelial Cells 10-20 H (0-5) /hpf Urine Bacteria Rare (FEW) /hpf Urine Mucus Not seen (FEW) /hpf Urine HCG, Qual Negative (NEGATIVE) Meds: Medications Discontinued Medications Generic Name Dose Route Start Last Admin Trade Name Gianni PRN Reason Stop Dose Admin Diazepam 2 mg 05/13/17 17:20 05/13/17 17:38 Valium PO 05/13/17 17:21 2 mg ONETIME ONE Administration Ketorolac Tromethamine 30 mg 05/13/17 17:20 05/13/17 17:31 Toradol IVPUSH 05/13/17 17:21 30 mg ONETIME ONE Administration Morphine Sulfate 5 mg 05/13/17 17:20 05/13/17 17:28 Morphine IVPUSH 05/13/17 17:21 5 mg ONETIME ONE Administration Morphine Sulfate 2 mg 05/13/17 19:17 05/13/17 19:23 Morphine IVPUSH 05/13/17 19:18 2 mg ONETIME ONE Administration - Radiology Interpretation Free Text/Narrative:: X-ray of the lumbar spine shows no acute fractures or dislocations. - Re-Assessments/Exams Free Text/Narrative Re-Assessment/Exam: 05/13/17 19:18 Patient's reports minimal pain relief with the medications. When she first arrived I did offer her an x-ray. She was informed that this will likely not show any pathology. Her back pain seems to be musculoskeletal in origin. She wanted to pursue the x-ray anyways. I informed her that there are no acute fractures or dislocations. Some minor joint space narrowing. She is requesting an MRI. I informed her that we are unable to get those in the ER that they are often not emergent. At this time I feel is appropriate to give her pain control now for follow-up with primary care provider next week. I educated her that physical therapy may be something she wants to pursue she continues to have back pain. I will give her additional 2 mg IV morphine and plan to discharge her. Departure - Departure Time of Disposition: 19:18 Disposition: Home, Self-Care 01 Condition: Fair Clinical Impression: Low back pain Qualifiers: Chronicity: unspecified Back pain laterality: midline Sciatica presence: without sciatica Qualified Code(s): M54.5 - Low back pain - Discharge Information Prescriptions: Acetaminophen/HYDROcodone [[place] 325-5 MG] 1 tab PO Q6H PRN #12 tablet PRN Reason: Pain Orphenadrine [Norflex] 100 mg PO BID PRN #20 tab.er PRN Reason: Pain Instructions: Back Pain, Adult Referrals: Adriana Mohan MD [Primary Care Provider] - Forms: ED Department Discharge Additional Instructions: [id number] Tylenol and Motrin as needed for pain relief. For pain not relieved by Tylenol or Motrin may take [place] 1 to 2 tabs every 6 hours. Do not take more than 4 g of Tylenol from all sources in 1 day. [place] can be habit- forming, recommend you take as few these as needed to control your pain. Norflex 1 tab twice a day as needed for muscle spasms. Recommend using ice or heat to the sore areas. He may also try topical products such as icyhot or BenGay. Follow up with primary care next week for recheck of your symptoms. Recommend Dr. Mohan at the [facility]. Call [phone] to schedule with her. You were given medication the other can affect your ability to drive and operate machinery. Do not drive or operate machinery within 12 hours of taking prescription narcotic pain medication. Please return to the ER if your symptoms change or worsen.
--- NOTE | 2017-05-14 14:31 | CR ---
Lumbar spine: AP, lateral and coned down lateral views centered to the lumbosacral junction were obtained. Comparison: No previous lumbar spine exam. Vertebral body heights are maintained. Mild disc space narrowing is noted at the lumbosacral junction most likely representing a transitional segment. Pedicles are intact. Transverse and spinous processes are intact. Sacroiliac joints are within normal limits. Impression: 1. Disc space narrowing at the lumbosacral junction most likely representing a transitional segment. 2. Three-view lumbar spine study is otherwise unremarkable. Diagnostic code #2
== END 2017-05-13 19:33 | disposition home or self-care (01) ==
LOC: JD.ED 15:20
DX: M54.5 Low back pain (principal); K21.9 Gastro-esophageal reflux disease without esophagitis; Z88.0 Allergy status to penicillin
CPT/HCPCS: 72100; 81001; 81025; 96374; 96375; 96376; 99284; A9270; J1885; J2270

== ENCOUNTER 2019-03-10 09:09 | Emergency (ER) | payer SELFPAY ==
[2019-03-10 09:37] VITALS: BP 139/91; PULSE 107
--- NOTE | 2019-03-10 11:02 | EDM.PDOC ---
ED HPI GENERAL MEDICAL PROBLEM - General Chief Complaint: Respiratory Problem Stated Complaint: COUGH/VOMITING/HEADACHE Time Seen by Provider: 03/10/19 09:16 Source of Information: Reports: Patient, RN Notes Reviewed - History of Present Illness INITIAL COMMENTS - FREE TEXT/NARRATIVE: 33-year-old female comes in with cough congestion fever chills. She and her whole family are ill. Started 2-3 days ago. Her cough is been nonproductive. He has mild sore throat. Nasal and sinus congestion. No difficulty breathing. - Related Data Allergies Allergy/AdvReac Type Severity Reaction Status Date / Time Penicillins AdvReac Vomiting Verified 03/10/19 09:37 Home Meds: Home Meds . 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: Psychiatric History: Reports: Depression - Infectious Disease History Infectious Disease History: Reports: Chicken Pox, Measles, Mumps - Past Surgical History Respiratory Surgical History: Reports: Other (See Below) Other Respiratory Surgeries/Procedures: Bronchoscopy in 2003 Female Surgical History: Reports: Section - History Comment History Comment: Obese Social & Family History - Family History Family Medical History: Noncontributory - Tobacco Use Smoking Status *Q: Never Smoker - Caffeine Use Caffeine Use: Reports: None ED ROS GENERAL - Review of Systems Review Of Systems: See Below Constitutional: Reports: Fever, Chills HEENT: Reports: Rhinitis, Throat Pain Respiratory: Reports: Cough (Coughing), Sputum. Denies: Shortness of Breath Cardiovascular: Reports: Chest Pain Endocrine: Reports: Fatigue GI/Abdominal: Denies: Nausea, Vomiting Musculoskeletal: Reports: Other (Generalized achiness) Skin: Reports: No Symptoms Neurological: Reports: Headache (Mild) ED EXAM, GENERAL - Physical Exam Exam: See Below General Appearance: Alert, No Apparent Distress Eye Exam: Bilateral Eye: PERRL Ears: Normal External Exam Nose: Normal Inspection Throat/Mouth: Normal Inspection Neck: Supple Respiratory/Chest: No Respiratory Distress, Lungs Clear, Normal Breath Sounds Cardiovascular: Tachycardia Extremities: Normal Inspection Neurological: Alert, Oriented Skin Exam: Warm, Dry, Normal Color Course - Vital Signs Last Recorded V/S: Last Vital Signs Temp 99.4 F 03/10/19 09:34 Pulse 107 H 03/10/19 09:34 Resp 16 03/10/19 09:34 BP 139/91 H 03/10/19 09:34 Pulse Ox 96 03/10/19 09:34 - Orders/Labs/Meds Orders: Active Orders 24 hr Category Date Time Status INFLUENZA A+B AG SCREEN [RM] Stat Lab 03/10/19 09:34 Ordered - Re-Assessments/Exams Free Text/Narrative Re-Assessment/Exam: 03/10/19 11:16 As noted the whole family is ill. That includes her 3 young children and her . Their 7 year-old child appears to have brought this home about 4-5 days ago. We did a flu screen on the [id number] infant and that did come back positive for influenza B. Therefore swabs were not sent for patient or the remainder of her family. Discharge instructions as documented Departure - Departure Time of Disposition: 11:00 Disposition: Home, Self-Care 01 Condition: Fair Clinical Impression: Influenza - Discharge Information Instructions: Influenza, Adult, [id number] Referrals: Paige Jones MD [Primary Care Provider] - Forms: ED Department Discharge Additional Instructions: Vaporizer or steam as needed for severe cough or difficulty breathing. Drink plenty of water to maintain hydration. You may take Tylenol or ibuprofen every 6-8 hours as needed for fever or severe discomfort. Symptoms should gradually get better over the next 2-3 days. You should be feeling a lot better within 2- 3 days. Follow-up clinic if not much better within 3-4 days as expected. Return to ED as needed. Sepsis Event Note - Evaluation Sepsis Screening Result: No Definite Risk - Focused Exam Vital Signs: Vital Signs Temp Pulse Resp BP Pulse Ox 03/10/19 09:34 99.4 F 107 H 16 139/91 H 96 Date Exam was Performed: 03/10/19 Time Exam was Performed: 11:11 - My Orders Last 24 Hours: My Active Orders 03/10/19 09:34 INFLUENZA A+B AG SCREEN [RM] Stat - Assessment/Plan Last 24 Hours: My Active Orders 03/10/19 09:34 INFLUENZA A+B AG SCREEN [RM] Stat
== END 2019-03-10 11:23 | disposition home or self-care (01) ==
LOC: JD.ED 09:09
DX: J11.1 Influenza due to unidentified influenza virus with other respiratory manifestations (principal); Z88.0 Allergy status to penicillin
CPT/HCPCS: 99282; 99283

== ENCOUNTER 2020-01-10 04:43 | Emergency (ER) | payer SELFPAY ==
[2020-01-10 05:05] VITALS: BP 150/82; PULSE 99
[2020-01-10] MEDS ORDERED: Magnesium Citrate Solution 296 ML Bottle PO ONE (05:38)
--- NOTE | 2020-01-10 05:39 | EDM.PDOC ---
ED HPI GENERAL MEDICAL PROBLEM - General Chief Complaint: Gastrointestinal Problem Stated Complaint: CONSTIPATION Time Seen by Provider: 01/10/20 04:59 Source of Information: Reports: Patient, RN Notes Reviewed - History of Present Illness INITIAL COMMENTS - FREE TEXT/NARRATIVE: 34 yr old female is worried about constipation. Typically has a BM every day. Now has not had BM for 2 days. No abd pain or cramping. No nausea or vomiting. Has been eating and drinking OK. - Related Data Allergies Allergy/AdvReac Type Severity Reaction Status Date / Time Penicillins AdvReac Vomiting Verified 03/10/19 09:37 Home Meds: Home Meds . 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: Psychiatric History: Reports: Depression - Infectious Disease History Infectious Disease History: Reports: Chicken Pox, Measles, Mumps - Past Surgical History Respiratory Surgical History: Reports: Other (See Below) Other Respiratory Surgeries/Procedures: Bronchoscopy in 2003 Female Surgical History: Reports: Section - History Comment History Comment: Obese Social & Family History - Family History Family Medical History: Noncontributory - Caffeine Use Caffeine Use: Reports: None ED ROS GENERAL - Review of Systems Review Of Systems: See Below Constitutional: Denies: Fever, Chills HEENT: Reports: No Symptoms Respiratory: Reports: No Symptoms Cardiovascular: Denies: Chest Pain GI/Abdominal: Reports: Constipation. Denies: Abdominal Pain, Nausea, Vomiting Musculoskeletal: Reports: No Symptoms Skin: Reports: No Symptoms Neurological: Reports: No Symptoms ED EXAM, GI/ABD - Physical Exam Exam: See Below General Appearance: Alert, No Apparent Distress Head: Atraumatic Neck: Supple Respiratory/Chest: No Respiratory Distress GI/Abdominal Exam: Soft, Non-Tender. No: Guarding, Rebound Extremities: Normal Inspection Skin Exam: Warm, Dry Course - Vital Signs Last Recorded V/S: Last Vital Signs Temp 98.5 F 01/10/20 05:01 Pulse 99 01/10/20 05:01 Resp 20 01/10/20 05:01 BP 150/82 H 01/10/20 05:01 Pulse Ox 96 01/10/20 05:01 - Orders/Labs/Meds Meds: Medications Discontinued Medications Generic Name Dose Route Start Last Admin Trade Name Freq PRN Reason Stop Dose Admin Magnesium Citrate 296 ml 01/10/20 05:38 01/10/20 05:53 Citrate Of Magnesia PO 01/10/20 05:39 296 ml ONETIME ONE Administration Departure - Departure Time of Disposition: 05:36 Disposition: Home, Self-Care 01 Condition: Fair Clinical Impression: Constipation - Discharge Information Instructions: Constipation, Adult, [id number] Referrals: Paige Joens MD [Primary Care Provider] - Forms: ED Department Discharge Additional Instructions: High fiber diet. Stool softner once or twice daily as needed. Drink 1/2 bottle mag citrate when you get home. Drink the remainder if no BM by this afternoon. Follow up clinc as needed. Sepsis Event Note (ED) - Evaluation Sepsis Screening Result: No Definite Risk
== END 2020-01-10 05:55 | disposition home or self-care (01) ==
LOC: JD.ED 04:43
DX: K59.00 Constipation, unspecified (principal); J45.909 Unspecified asthma, uncomplicated; Z88.0 Allergy status to penicillin
CPT/HCPCS: 99283; A9270; 99282

== ENCOUNTER 2020-12-30 21:45 | Emergency (ER) | payer MEDICAID ==
[2020-12-30] MEDS ORDERED: Amoxicillin/Clavulanate K 875-125 MG Tab PO ONE (22:09)
--- NOTE | 2020-12-30 22:15 | EDM.PDOC ---
ED HPI GENERAL MEDICAL PROBLEM - General Chief Complaint: Bite:Animal, Insect Stated Complaint: DOG BITE LT ARM Time Seen by Provider: 12/30/20 21:53 Source of Information: Reports: Patient, RN Notes Reviewed History Limitations: Reports: No Limitations - History of Present Illness INITIAL COMMENTS - FREE TEXT/NARRATIVE: Patient is a 35-year-old female presents to the ER for a dog bite to her left forearm. Patient states she was trying to break up a fight between her dog and another dog, and she ended up getting bit on the proximal left forearm. There are 2 small puncture wounds and one more superficial abrasion. Bleeding is controlled at this time. The puncture wounds themselves measure about 5 mm in length. She states that her dog is up-to-date on vaccinations, and she was aware that the other dog was up-to-date on vaccinations at one time but she is not sure at this particular moment. Patient denies any other sick-like symptoms, fever/chills, cough/shortness of breath, nausea/vomiting/diarrhea. 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: Psychiatric History: Reports: Depression - Infectious Disease History Infectious Disease History: Reports: Chicken Pox, Measles, Mumps - Past Surgical History Respiratory Surgical History: Reports: Other (See Below) Other Respiratory Surgeries/Procedures: Bronchoscopy in 2003 Female Surgical History: Reports: Section - History Comment History Comment: Obese Social & Family History - Family History Family Medical History: No Pertinent Family History - Tobacco Use Tobacco Use Status *Q: Never Tobacco User - Caffeine Use Caffeine Use: Reports: None ED ROS GENERAL - Review of Systems Review Of Systems: Comprehensive ROS is negative, except as noted in HPI. ED EXAM, ANIMAL BITE - Physical Exam Exam: See Below Exam Limited By: No Limitations General Appearance: Alert, WD/WN, No Apparent Distress Respiratory/Chest: No Respiratory Distress, Lungs Clear, Normal Breath Sounds, No Accessory Muscle Use, Chest Non-Tender Cardiovascular: Normal Peripheral Pulses, Regular Rate, Rhythm, No Edema GI/Abdominal: Normal Bowel Sounds, Soft, Non-Tender, No Distention, No Mass Extremities: Normal Inspection, Normal Capillary Refill Neurological: Alert, Oriented, Normal Cognition, No Motor/Sensory Deficits Psychiatric: Normal Affect, Normal Mood Skin Exam: Normal Color, Warm/Dry, Other (2 small linear puncture wounds to the patient's proximal outer forearm, these measure 5 mm in length each, and 1 smaller superficial abrasion. All wounds have bleeding controlled.) Course - Vital Signs Last Recorded V/S: Last Vital Signs Temp 97.4 F 12/30/20 21:54 Pulse 115 H 12/30/20 21:54 Resp 18 12/30/20 21:54 BP 142/87 H 12/30/20 21:54 Pulse Ox 97 12/30/20 21:54 - Orders/Labs/Meds Meds: Medications Discontinued Medications Generic Name Dose Route Start Last Admin Trade Name Freq PRN Reason Stop Dose Admin Amoxicillin/Clavulanate Potassium 1 tab 12/30/20 22:09 Amoxicillin/Clavulanate K 875-125 Mg Tab PO 12/30/20 22:10 ONETIME ONE - Re-Assessments/Exams Free Text/Narrative Re-Assessment/Exam: 12/30/20 22:13 Patient presents to the ER for her dog bite, wounds will be cleansed with soap and water, and bandaged appropriately patient will be started on Augmentin. Patient will coordinate with police to make sure that the other dog was vaccinated appropriately. Departure - Departure Time of Disposition: 22:14 Disposition: Home, Self-Care 01 Condition: Good Clinical Impression: Dog bite of extremity - Discharge Information *PRESCRIPTION DRUG MONITORING PROGRAM REVIEWED*: No *COPY OF PRESCRIPTION DRUG MONITORING REPORT IN PATIENT MICHELLE: No Prescriptions: Amoxicillin/Clavulanate K [Augmentin 875-125 MG] 1 tab PO BID #10 tablet Instructions: Animal Bite, Adult, [id number] Referrals: PCP,None [Primary Care Provider] - Additional Instructions: You have been evaluated in the ED for your dog bite. Your wound was cleansed with soap and water, and a bandage was applied to the area. These wounds were not repaired with stitches or sutures, as it is best to let these wounds stay open to drain. Please keep this area clean and dry, you may cleanse with regular soap and water. No vigorous scrubbing. Please try to avoid submerging the affected area in water for prolonged periods of time until the Dermabond wears off. Watch out for signs of infection like increased redness, swelling, pain at the laceration site, or if you should develop any fevers or chills. You have been started on an antibiotic, 1 tablet 2 times a day for the next 5 days. This medication was electronically sent to the [facility] located near [facility]. Please return to ED if your symptoms change or worsen. Sepsis Event Note (ED) - Evaluation Sepsis Screening Result: No Definite Risk - Focused Exam Vital Signs: Vital Signs Temp Pulse Resp BP Pulse Ox 12/30/20 21:54 97.4 F 115 H 18 142/87 H 97
[2020-12-30 22:39] VITALS: BP 148/89; PULSE 96
== END 2020-12-30 22:49 | disposition home or self-care (01) ==
LOC: JD.ED 21:45
DX: S51.852A Open bite of left forearm, initial encounter (principal); Z88.0 Allergy status to penicillin; W54.0XXA Bitten by dog, initial encounter
CPT/HCPCS: 99283; A9270

== ENCOUNTER 2022-11-14 01:43 | Emergency (ER) | payer MEDICAID ==
[2022-11-14] MEDS ORDERED: Acetaminophen/HYDROcodone 325-5 MG Tab PO ONE (02:08)
[2022-11-14 04:48] VITALS: BP 139/74; PULSE 74
== END 2022-11-14 04:46 | disposition home or self-care (01) ==
LOC: JD.ED 01:43
DX: T25.222A Burn of second degree of left foot, initial encounter (principal); Z88.0 Allergy status to penicillin
CPT/HCPCS: 16020; 99283; A9270; 99282

== ENCOUNTER 2023-06-14 00:22 | Emergency (ER) | payer MEDICAID ==
[2023-06-14] MEDS: Dexamethasone 4 MG/ML 5 ML MDV PO ONE (01:23)
[2023-06-14 01:29] LABS: CORONAVIRUS COVID-19 NAA NEGATIVE (NEGATIVE); INFLUENZA A NAA NEGATIVE (NEGATIVE)
[2023-06-14 01:58] VITALS: BP 140/89; PULSE 88
== END 2023-06-14 01:58 | disposition home or self-care (01) ==
LOC: JD.ED 00:22
DX: J02.8 Acute pharyngitis due to other specified organisms (principal); J45.909 Unspecified asthma, uncomplicated; E66.9 Obesity, unspecified; Z88.0 Allergy status to penicillin; Z79.51 Long term (current) use of inhaled steroids; Z86.19 Personal history of other infectious and parasitic diseases; Z68.43 Body mass index [BMI] 50.0-59.9, adult
CPT/HCPCS: 0240U; 87651-QW; 99283; J8540

== ENCOUNTER 2024-08-06 13:47 | Emergency (ER) | payer MEDICAID ==
[2024-08-06 14:38] LABS: BASOPHILS PERCENT AUTO 0.5 % (0.0-1.0); EOSINOPHILS ABSOLUTE AUTO 0.2 K/mm3 (0.0-0.4); EOSINOPHILS PERCENT AUTO 2.2 % (0.0-6.0); HEMATOCRIT 30.8 % (37.0-47.0); HEMOGLOBIN 9.6 gm/dl (12.0-16.0); IMMATURE GRAN ABSOLUTE AUTO 0.08 K/mm3 (0.00-0.05); LYMPHOCYTES ABSOLUTE AUTO 1.8 K/mm3 (1.0-4.8); LYMPHOCYTES PERCENT AUTO 21.9 % (24.0-44.0); MEAN CORPUSCULAR HGB CONC 31.2 g/dl (32.0-36.0); MEAN CORPUSCULAR VOLUME 80.2 fl (83.0-99.0); MEAN PLATELET VOLUME 11.3 fl (9.4-12.3); MONOCYTES ABSOLUTE AUTO 0.5 K/mm3 (0.0-0.8); MONOCYTES PERCENT AUTO 5.6 % (0.0-8.0); NEUTROPHILS ABSOLUTE AUTO 5.5 K/mm3 (1.8-7.7); NEUTROPHILS PERCENT AUTO 68.8 % (41.0-71.0); NRBC ABSOLUTE 0.03 (0.00-0.02); NRBC PERCENT 0.4 % (0.0-0.2); PLATELET COUNT,PLT 313 K/mm3 (150-400); RED BLOOD CELL COUNT 3.84 M/mm3 (4.10-5.30); WHITE BLOOD CELL COUNT,WBC 8.03 K/mm3 (3.9-11.3)
[2024-08-06] MEDS: methylPREDNISolone Sodium Succinate 125 MG/2 ML SDV IVPUSH ONE (14:40)
[2024-08-06] MEDS: Albuterol/Ipratropium 3.0-0.5 MG/3 ML Neb Soln NEB ONE (14:42)
[2024-08-06] MEDS: Sodium Chloride 0.9% 10 ML Syringe FLUSH PRN (14:43)
[2024-08-06 15:02] LABS: APPEARANCE,URINE CLEAR (Clear); BILIRUBIN,URINE NEGATIVE (Negative); COLOR,URINE YELLOW (Yellow); GLUCOSE,URINE NEGATIVE (Negative); KETONES,URINE NEGATIVE (Negative); LEUKOCYTE ESTERASE,URINE NEGATIVE (Negative); NITRITE,URINE NEGATIVE (Negative); OCCULT BLOOD,URINE TRACE-INTACT (Negative); PH,URINE 6.5 (5.0-8.0); PROTEIN,URINE 2+ (Negative)
[2024-08-06 15:03] LABS: A/G RATIO 0.5 (1-2); ALBUMIN 2.4 g/dl (3.4-5.0); BILIRUBIN TOTAL 0.4 mg/dL (0.2-1.0); BUN/CREATININE RATIO 12.2 (14-18); CALCIUM 8.4 mg/dL (8.5-10.1); CREATININE 0.9 mg/dL (0.55-1.02); EST CRCL DRUG DOSING (CG) 73.19 mL/min
[2024-08-06 15:10] LABS: BACTERIA,URINE FEW /hpf (FEW); COARSE GRANULAR CASTS,URINE 0-5 /hpf (0-5); EPITHELIAL CELLS,URINE 0-5 /hpf (0-5); MUCUS,URINE NOT SEEN /hpf (FEW); RBC,URINE 0-5 /hpf (0-5); WBC,URINE 0-5 /hpf (0-5)
[2024-08-06] MEDS: Sodium Chloride 0.9% 100 ML IV SCH (15:32)
[2024-08-06] MEDS: Iopamidol 755 Mg/ML 100 ML Bottle IVPUSH ONE (15:32)
[2024-08-06] MEDS: Sodium Chloride 0.9% 10 ML Syringe FLUSH ONE (15:32)
[2024-08-06] MEDS: Furosemide 40 MG/4 ML VIAL IVPUSH ONE (16:20)
[2024-08-06 18:06] VITALS: BP 178/107; PULSE 94
== END 2024-08-06 18:03 ==
LOC: JD.ED 13:47
DX: I50.9 Heart failure, unspecified (principal); O99.43 Diseases of the circulatory system complicating the puerperium; I42.9 Cardiomyopathy, unspecified; D64.89 Other specified anemias; J45.909 Unspecified asthma, uncomplicated; E66.9 Obesity, unspecified; Z88.0 Allergy status to penicillin; Z91.013 Allergy to seafood; Z79.899 Other long term (current) drug therapy; Z68.43 Body mass index [BMI] 50.0-59.9, adult
CPT/HCPCS: 36415; 71275; 80053; 81001; 83880; 84484; 85025; 93005; 94640; 94660; 96374; 96375; 99285; C1758; J1938; J2919; J7620; Q9967; 87070; 87205; 93010; A9270-GY

== ENCOUNTER 2025-02-13 20:04 | Emergency (ER) | payer MEDICAID ==
[2025-02-13 20:25] VITALS: BP 149/83; PULSE 99
== END 2025-02-13 22:50 | disposition home or self-care (01) ==
LOC: JD.ED 20:04
DX: Z32.01 Encounter for pregnancy test, result positive (principal); Z3A.09 9 weeks gestation of pregnancy
CPT/HCPCS: 36415; 81025; 84702; 99282